=== PATIENT | male | born 1965 | race Caucasian/White ===

== ENCOUNTER 2018-03-16 09:25 | Inpatient (IN) ==
[~2018-03-16 09:25] MED LIST: CHLORHEXIDINE 0.12% ORAL RINSE 60 ML BOTTLE SWISH/SPIT SCH; DEXTROSE 50% 25 GM/50 ML VIAL IV PRN; GLUCAGON 1 MG VIAL IM PRN; SODIUM CHLORIDE 0.9% 1,000 ML IV PRN; ZALEPLON 5 MG CAPSULE PO PRN
[2018-03-16 10:14] LABS: Basophils # 0.1 10*3/uL (0.0-0.2); Basophils % 0.9 % (0.0-0.8); Eosinophils # 0.4 10*3/uL (0.0-0.87); Hematocrit 42.4 VOL% (42.0-52.0); Immature Granulocytes % 3.7 %; Immature Granulocytes Absolute 0.43 #; Lymphocytes # 2.2 10*3/uL (1.4-4.0); Lymphocytes % 18.7 % (21.2-54.2); Mean Corpuscular Hemoglobin 30 PG (27-34); Mean Corpuscular Volume 90.6 FL (87-102); Mean Platelet Volume 11.2 FL (9.6-12.0); Monocytes # 0.7 10*3/uL (0.11-0.8); Monocytes % 5.8 % (1.7-12.7); Neutrophils % 67.9 % (38.7-73.9); Platelet Count 220 T/CUMM (130-400); Red Blood Count 4.68 MC/CUMM (3.8-5.5); Red Cell Distribution Width 13.5 % (9.3-17.3); White Blood Count 11.7 T/CUMM (4-12)
[2018-03-16 10:43] LABS: Albumin 3.4 G/DL (3.4-5.0); Bilirubin,Total 0.5 MG/DL (0.2-1.0); Osmolality,Calculated 277.5 MOS/KG (273-304); Potassium 3.8 MMOL/L (3.5-5.1)
[2018-03-16 12:27] LABS: ABG Base Excess -0.4 MMOL/L (-2.5-2.5); ABG HCO3 24.1 MMOL/L (20-26); ABG Oxygen Saturation 96.6 % (95-100); ABG PCO2 42.4 MM HG (35-48); ABG PH 7.377 (7.35-7.45); ABG PO2 91.7 MM HG (80-95); ABG TCO2 21.5 MMOL/L (23-27)
[2018-03-16] MEDS: CLORAZEPATE 7.5 MG TABLET PO PRN ×2 (12:33→20:25)
[2018-03-16] MEDS: SODIUM CHLORIDE 0.9% 1,000 ML IV SCH ×5 (18:50→18:56)
[2018-03-16] MEDS: METOPROLOL TARTRATE 25 MG TABLET PO SCH ×4 (18:50→20:48)
[2018-03-16] MEDS: CHLORHEXIDINE 0.12% ORAL RINSE 60 ML BOTTLE SWISH/SPIT SCH ×4 (18:51→20:48)
[2018-03-16] MEDS: ASPIRIN CHEW 81 MG TABLET PO SCH (18:55)
[2018-03-16] MEDS: CHLORHEXIDINE 4% SOLN 118 ML BOTTLE TOP SCH ×2 (18:55→20:25)
[2018-03-16] MEDS: ATORVASTATIN 20 MG TABLET PO SCH (18:55)
[2018-03-17] MEDS ORDERED: PAPAVERINE 60 MG/2 ML VIAL ONE (05:21)
[2018-03-17] MEDS ORDERED: VANCOMYCIN 1,000 MG VIAL ONE (05:21)
[2018-03-17] MEDS ORDERED: CEFUROXIME INJ 1,500 MG in SYRINGE 1 EACH IV ONE (06:00)
[2018-03-17] MEDS ORDERED: EPINEPHrine 1 MG/10 ML SYRINGE ONE (07:26)
[2018-03-17] MEDS ORDERED: CALCIUM CHLORIDE 1,000 MG/10 ML SYRINGE IV ONE (07:26)
[2018-03-17] MEDS ORDERED: ALBUMIN 5% 12.5 GM/250 ML VIAL IV ONE (07:26)
[2018-03-17] MEDS ORDERED: PHENYLEPHRINE DRIP 40 MG/250 ML PREMIX IV ONE (07:26)
[2018-03-17] MEDS ORDERED: POTASSIUM CHLORIDE RIDER 100 ML IV ONE (07:27)
[2018-03-17] MEDS ORDERED: ATROPINE 1 MG/10 ML SYRINGE ONE (07:27)
[2018-03-17 07:39] LABS: ABG Base Excess 2.1 MMOL/L (-2.5-2.5); ABG HCO3 26.4 MMOL/L (20-26); ABG Oxygen Saturation 99.2 % (95-100); ABG PH 7.437 (7.35-7.45); ABG TCO2 27.6 MMOL/L (23-27); Glucose Heart Surgery 105 MG/DL (74-106); Hemoglobin Heart Surgery 13.9 G/DL (14.0-18.0); PH Patient Temp Arterial 7.437; Patient Temperature 37 CELCIUS; Sodium Heart/CVR 138 MMOL/L (135-145)
[2018-03-17 09:07] LABS: Hemoglobin Heart Surgery 9.8 G/DL (14.0-18.0); PCO2 Patient Temp Venous 36.3 MM HG; PH Patient Temp Venous 7.459; PO2 Patient Temp Venous 39.8 MM HG; Potassium Heart/CVR 5.8 MMOL/L (3.5-5.1); VBG Base Excess 2.1 MEQ/L (0-4); VBG HCO3 26.1 MEQ/L (24-28); VBG Oxygen Saturation 84.3 %; VBG PCO2 41.9 MMHG (41-51); VBG PH 7.415; VBG PO2 48.9 MMHG (17-40)
[2018-03-17 09:08] LABS: Hematocrit Heart Surgery 30.3 PERCENT (42-52)
[2018-03-17] MEDS ORDERED: VECURONIUM 10 MG VIAL IV ONE (09:18)
[2018-03-17] MEDS ORDERED: SUFentanil 250 MCG/5 ML AMP ONE (09:18)
[2018-03-17] MEDS ORDERED: MIDAZOLAM 10 MG/2 ML VIAL ONE ×2 (09:18→11:26)
[2018-03-17] MEDS ORDERED: HEPARIN/NACL 0.9% 2 UNITS/ML 500 ML IV ONE (09:18)
[2018-03-17] MEDS ORDERED: CALCIUM CHLORIDE 1,000 MG/10 ML VIAL IV ONE (09:18)
[2018-03-17] MEDS ORDERED: NITROGLYCERIN DRIP 50 MG/250 ML BOTTLE IV ONE (09:19)
[2018-03-17] MEDS ORDERED: PHENYLEPHRINE DRIP 20 MG/250 ML PREMIX IV ONE (09:19)
[2018-03-17] MEDS ORDERED: SODIUM CHLORIDE 0.9% 1,000 ML IV ONE (09:19)
[2018-03-17] MEDS ORDERED: LACTATED RINGERS 1,000 ML IV ONE (09:19)
[2018-03-17] MEDS ORDERED: ETOMIDATE 40 MG/20 ML VIAL IV ONE (09:19)
[2018-03-17] MEDS ORDERED: AMINOCAPROIC ACID 5,000 MG/20 ML VIAL IV ONE (09:19)
[2018-03-17 09:41] LABS: Hematocrit Heart Surgery 33.2 PERCENT (42-52); Hemoglobin Heart Surgery 10.8 G/DL (14.0-18.0); PCO2 Patient Temp Venous 32.7 MM HG; PH Patient Temp Venous 7.481; PO2 Patient Temp Venous 34.3 MM HG; Potassium Heart/CVR 5.9 MMOL/L (3.5-5.1); VBG Base Excess 1.4 MEQ/L (0-4); VBG HCO3 25.3 MEQ/L (24-28); VBG Oxygen Saturation 77.8 %; VBG PCO2 37.8 MMHG (41-51); VBG PH 7.436; VBG PO2 42.3 MMHG (17-40)
[2018-03-17 10:10] LABS: Hematocrit Heart Surgery 35.2 PERCENT (42-52); Hemoglobin Heart Surgery 11.4 G/DL (14.0-18.0); PCO2 Patient Temp Venous 37.4 MM HG; PH Patient Temp Venous 7.427; PO2 Patient Temp Venous 48.6 MM HG; Potassium Heart/CVR 5.4 MMOL/L (3.5-5.1); VBG Base Excess 0.6 MEQ/L (0-4); VBG HCO3 24.7 MEQ/L (24-28); VBG Oxygen Saturation 83.8 %; VBG PCO2 37.4 MMHG (41-51); VBG PH 7.427; VBG PO2 48.6 MMHG (17-40)
[2018-03-17] MEDS ORDERED: FAMOTIDINE 20 MG/2 ML VIAL IV ONE (10:23)
[2018-03-17] MEDS ORDERED: diphenhydrAMINE 50 MG/1 ML VIAL ONE (10:23)
[2018-03-17 10:34] LABS: ABG Base Excess -1.4 MMOL/L (-2.5-2.5); ABG HCO3 23.3 MMOL/L (20-26); ABG Oxygen Saturation 99.4 % (95-100); ABG PCO2 38.1 MM HG (35-48); ABG PH 7.393 (7.35-7.45); ABG TCO2 20.6 MMOL/L (23-27); Glucose Heart Surgery 171 MG/DL (74-106); Hematocrit Heart Surgery 36.9 PERCENT (42-52); Ionized Calcium Arterial 1.32 MMOL/L (1.21-1.46); PCO2 Patient Temp Arterial 38.1 MMHG; PH Patient Temp Arterial 7.393; Patient Temperature 37 CELCIUS; Potassium Heart/CVR 4.3 MMOL/L (3.5-5.1); Sodium Heart/CVR 136 MMOL/L (135-145)
[2018-03-17] MEDS ORDERED: SODIUM BICARBONATE 50 MEQ/50 ML SYRINGE IV ONE (10:41)
[2018-03-17] MEDS ORDERED: PROTAMINE SULFATE 250 MG/25 ML VIAL IV ONE (10:41)
[2018-03-17] MEDS ORDERED: DEXTROSE 5% KCL 20 MEQ 20 MEQ/1,000 ML BAG IV ONE (10:41)
[2018-03-17] MEDS ORDERED: ALBUMIN 25% 25 GM/100 ML VIAL IV ONE (10:41)
[2018-03-17] MEDS ORDERED: MAGNESIUM SULFATE 10 GM/20 ML VIAL IV ONE (10:41)
[2018-03-17] MEDS ORDERED: methylPREDNISolone SOD SUC 1,000 MG/8 ML VIAL ONE (10:42)
[2018-03-17] MEDS ORDERED: HEPARIN 10,000 UNIT/10 ML VIAL ONE (10:42)
[2018-03-17] MEDS ORDERED: MANNITOL 12.5 GM/50 ML VIAL IV ONE (10:42)
[2018-03-17] MEDS ORDERED: FUROSEMIDE 20 MG/2 ML VIAL ONE (10:42)
[2018-03-17] MEDS ORDERED: SEVOFLURANE 1 UNIT/15 MINUTE INH ONE (11:25)
[2018-03-17] MEDS ORDERED: PHENYLEPHRINE DRIP 40 MG/250 ML PREMIX IV PRN (11:43)
[2018-03-17] MEDS ORDERED: VECURONIUM 10 MG VIAL IV PRN ×2 (11:43)
[2018-03-17] MEDS ORDERED: MORPHINE 10 MG/1 ML VIAL IV PRN (11:43)
[2018-03-17] MEDS ORDERED: INSULIN REGULAR DRIP 100 ML IV SCH (11:43)
[2018-03-17] MEDS ORDERED: MIDAZOLAM 10 MG/2 ML VIAL IV PRN (11:43)
[2018-03-17] MEDS ORDERED: MAGNESIUM SULF RIDER 2 GM in PREMIX 1 EACH IV PRN (11:43)
[2018-03-17] MEDS ORDERED: DEXTROSE 50% 25 GM/50 ML VIAL IV PRN ×2 (11:43)
[2018-03-17] MEDS ORDERED: NITROPRUSSIDE 100 MG in DEXTROSE 5% 250 ML IV PRN (11:43)
[2018-03-17] MEDS ORDERED: POTASSIUM CHLORIDE RIDER 10 MEQ in PREMIX 1 EACH IV PRN (11:43)
[2018-03-17] MEDS ORDERED: INSULIN REGULAR 100 UNIT/ML IV ONE (11:43)
[2018-03-17] MEDS ORDERED: SODIUM CHLORIDE 0.45% 1,000 ML IV SCH ×2 (11:43)
[2018-03-17] MEDS ORDERED: INSULIN REGULAR 100 UNIT/ML IV PRN (11:43)
[2018-03-17] MEDS ORDERED: CALCIUM CHLORIDE 1,000 MG/10 ML SYRINGE IV PRN (11:43)
[2018-03-17] MEDS ORDERED: MAGNESIUM SULF RIDER 4 GM in PREMIX 1 EACH IV PRN (11:43)
[2018-03-17] MEDS ORDERED: LACTATED RINGERS 250 ML IV PRN (11:43)
[2018-03-17] MEDS ORDERED: ONDANSETRON 4 MG/2 ML VIAL IV PRN (11:43)
[2018-03-17] MEDS ORDERED: ACETAMINOPHEN 650 MG SUPP RECTAL PRN (11:43)
[2018-03-17 11:47] LABS: ABG Base Excess -0.7 MMOL/L (-2.5-2.5); ABG HCO3 23.9 MMOL/L (20-26); ABG Oxygen Saturation 98.6 % (95-100); ABG PCO2 48.4 MM HG (35-48); ABG PH 7.334 (7.35-7.45); Glucose Heart Surgery 127 MG/DL (74-106); Hematocrit Heart Surgery 36.5 PERCENT (42-52); Hemoglobin Heart Surgery 11.9 G/DL (14.0-18.0); Potassium Heart/CVR 3.9 MMOL/L (3.5-5.1)
[2018-03-17 11:49] LABS: Basophils # 0.1 10*3/uL (0.0-0.2); Basophils % 0.4 % (0.0-0.8); Eosinophils # 0.2 10*3/uL (0.0-0.87); Eosinophils % 0.9 % (0.00-10.9); Hematocrit 36.2 VOL% (42.0-52.0); Hemoglobin 12.3 GM/DL (14.0-18.0); Immature Granulocytes % 3.6 %; Immature Granulocytes Absolute 0.58 #; Lymphocytes # 1.3 10*3/uL (1.4-4.0); Lymphocytes % 7.9 % (21.2-54.2); Mean Corpuscular Hemoglobin 31 PG (27-34); Mean Corpuscular Volume 90.3 FL (87-102); Mean Platelet Volume 11.1 FL (9.6-12.0); Monocytes # 0.6 10*3/uL (0.11-0.8); Monocytes % 3.7 % (1.7-12.7); Neutrophils # 13.6 10*3/uL (1.4-7.4); Neutrophils % 83.5 % (38.7-73.9); Platelet Count 213 T/CUMM (130-400); Red Blood Count 4.01 MC/CUMM (3.8-5.5); Red Cell Distribution Width 13.3 % (9.3-17.3); White Blood Count 16.3 T/CUMM (4-12)
[2018-03-17] MEDS: POTASSIUM CHLORIDE RIDER 20 MEQ in PREMIX 1 EACH IV PRN ×2 (12:00→18:37)
[2018-03-17 12:09] LABS: PT Patient Result 10.4 SECS; Partial Thromboplastin Time 25.5 SECS (0-40)
[2018-03-17 12:12] LABS: Albumin 3.5 G/DL (3.4-5.0); Bilirubin,Total 1.4 MG/DL (0.2-1.0); Calcium 9.3 MG/DL (8.5-10.1); Osmolality,Calculated 281.3 MOS/KG (273-304); Total Protein 6.4 G/DL (6.4-8.3)
[2018-03-17 12:22] LABS: CKMB % 9.7 %
[2018-03-17 12:25] LABS: Troponin I 5.59 NG/ML (0.00-0.045)
[2018-03-17] MEDS: KETOROLAC 30 MG/1 ML VIAL IV SCH ×2 (12:31→18:43)
[2018-03-17] MEDS: ALBUMIN 5% 12.5 GM in PREMIX 1 EACH IV PRN ×4 (12:31→18:30)
[2018-03-17 13:06] LABS: Band Neutrophils 1 % (0-10); Eosinophils 2 % (0-10); Lymphocytes 12 % (20-55); Segmented Neutrophils 79 % (50-85); Total Cells Counted 100
[2018-03-17 13:07] LABS: Anisocytosis 1+
[2018-03-17 13:08] LABS: Ovalocytes Slight; Tear Drop Cells Slight
[2018-03-17 13:10] LABS: Platelet Estimate Normal
[2018-03-17 13:11] LABS: Polychromasia Slight
[2018-03-17 13:12] LABS: Stomatocytes Slight
[2018-03-17 13:13] LABS: Macrocytosis Slight
[2018-03-17 13:15] LABS: ABG HCO3 24.5 MMOL/L (20-26); ABG PCO2 48.8 MM HG (35-48); ABG TCO2 23.7 MMOL/L (23-27); Glucose Heart Surgery 122 MG/DL (74-106); Hematocrit Heart Surgery 35.5 PERCENT (42-52); Hemoglobin Heart Surgery 11.5 G/DL (14.0-18.0); Potassium Heart/CVR 4.2 MMOL/L (3.5-5.1)
[2018-03-17 14:25] LABS: ABG Base Excess 1.3 MMOL/L (-2.5-2.5); ABG HCO3 29.1 MMOL/L (20-26); ABG Oxygen Saturation 94.8 % (95-100); ABG PCO2 62.4 MM HG (35-48); ABG PH 7.287 (7.35-7.45); ABG PO2 92.5 MM HG (80-95); Glucose Heart Surgery 127 MG/DL (74-106); Hemoglobin Heart Surgery 11.7 G/DL (14.0-18.0); Potassium Heart/CVR 4.5 MMOL/L (3.5-5.1)
[2018-03-17] MEDS ORDERED: FUROSEMIDE 40 MG/4 ML VIAL IV ONE (14:30)
[2018-03-17] MEDS ORDERED: FUROSEMIDE 40 MG/4 ML VIAL ONE (14:34)
[2018-03-17] MEDS: ALBUTEROL/IPRATROPIUM 3 ML NEB RESP TX SCH ×3 (14:55→22:48)
[2018-03-17 15:25] LABS: ABG HCO3 23.6 MMOL/L (20-26); ABG PCO2 53.1 MM HG (35-48); ABG PH 7.302 (7.35-7.45); ABG TCO2 23.6 MMOL/L (23-27); Glucose Heart Surgery 159 MG/DL (74-106); Hematocrit Heart Surgery 36.2 PERCENT (42-52); Hemoglobin Heart Surgery 11.8 G/DL (14.0-18.0); Potassium Heart/CVR 4.3 MMOL/L (3.5-5.1)
[2018-03-17 16:29] LABS: ABG Base Excess 0.3 MMOL/L (-2.5-2.5); ABG HCO3 25.7 MMOL/L (20-26); ABG Oxygen Saturation 97.7 % (95-100); ABG PCO2 44.7 MM HG (35-48); ABG PH 7.378 (7.35-7.45); ABG PO2 120.2 MM HG (80-95); ABG TCO2 27.1 MMOL/L (23-27); Glucose Heart Surgery 168 MG/DL (74-106); Hemoglobin Heart Surgery 12.3 G/DL (14.0-18.0); Potassium Heart/CVR 4.3 MMOL/L (3.5-5.1)
[2018-03-17] MEDS: INSULIN REGULAR 100 UNIT/ML SUBCUT SCH ×2 (17:08→20:27)
[2018-03-17 18:04] LABS: ABG Base Excess -4.6 MMOL/L (-2.5-2.5); ABG HCO3 20.6 MMOL/L (20-26); ABG Oxygen Saturation 97.6 % (95-100); ABG PCO2 42.6 MM HG (35-48); ABG PH 7.312 (7.35-7.45); ABG TCO2 19.3 MMOL/L (23-27); Glucose Heart Surgery 193 MG/DL (74-106); Hematocrit Heart Surgery 36.9 PERCENT (42-52)
[2018-03-17] MEDS: MIDAZOLAM 2 MG/2 ML VIAL IV PRN (19:35)
[2018-03-17 20:02] LABS: ABG Base Excess -6.9 MMOL/L (-2.5-2.5); ABG HCO3 18.8 MMOL/L (20-26); ABG Oxygen Saturation 96.8 % (95-100); ABG PCO2 39.6 MM HG (35-48); ABG PH 7.293 (7.35-7.45); ABG TCO2 17.4 MMOL/L (23-27); Glucose Heart Surgery 196 MG/DL (74-106); Hematocrit Heart Surgery 34.4 PERCENT (42-52); Hemoglobin Heart Surgery 11.2 G/DL (14.0-18.0); Potassium Heart/CVR 4.4 MMOL/L (3.5-5.1)
[2018-03-17] MEDS: CHLORHEXIDINE 0.12% ORAL RINSE 60 ML BOTTLE SWISH/SPIT SCH (20:25)
[2018-03-17] MEDS: CEFUROXIME INJ 1,500 MG in SYRINGE 1 EACH IV SCH (20:26)
[2018-03-17 20:35] LABS: CKMB % 6.5 %
[2018-03-17 20:44] LABS: Troponin I 7.8 NG/ML (0.00-0.045)
[2018-03-18] MEDS: KETOROLAC 30 MG/1 ML VIAL IV SCH ×2 (00:23→06:20)
[2018-03-18 00:42] LABS: ABG HCO3 20.2 MMOL/L (20-26); ABG Oxygen Saturation 93.8 % (95-100); ABG PCO2 36.8 MM HG (35-48); ABG PH 7.346 (7.35-7.45); ABG PO2 73.2 MM HG (80-95); ABG TCO2 18.3 MMOL/L (23-27); Glucose Heart Surgery 181 MG/DL (74-106); Hematocrit Heart Surgery 33.1 PERCENT (42-52); Hemoglobin Heart Surgery 10.7 G/DL (14.0-18.0); Potassium Heart/CVR 3.8 MMOL/L (3.5-5.1)
[2018-03-18] MEDS: POTASSIUM CHLORIDE RIDER 20 MEQ in PREMIX 1 EACH IV PRN ×2 (00:55→04:51)
[2018-03-18] MEDS: INSULIN REGULAR 100 UNIT/ML SUBCUT SCH ×4 (00:55→12:09)
[2018-03-18] MEDS: MORPHINE 4 MG/1 ML VIAL IV PRN ×3 (01:18→19:39)
[2018-03-18] MEDS ORDERED: FUROSEMIDE 40 MG/4 ML VIAL IV ONE (01:57)
[2018-03-18] MEDS: ALBUTEROL/IPRATROPIUM 3 ML NEB RESP TX SCH ×2 (02:44→08:14)
[2018-03-18 04:02] LABS: ABG Base Excess -2.7 MMOL/L (-2.5-2.5); ABG HCO3 22.1 MMOL/L (20-26); ABG Oxygen Saturation 94.3 % (95-100); ABG PCO2 36.5 MM HG (35-48); ABG PH 7.384 (7.35-7.45); ABG PO2 72.1 MM HG (80-95); ABG TCO2 19.7 MMOL/L (23-27); Glucose Heart Surgery 177 MG/DL (74-106); Hemoglobin Heart Surgery 10.7 G/DL (14.0-18.0)
[2018-03-18 04:04] LABS: Basophils % 0.1 % (0.0-0.8); Hematocrit 31.4 VOL% (42.0-52.0); Hemoglobin 10.4 GM/DL (14.0-18.0); Immature Granulocytes % 1.5 %; Immature Granulocytes Absolute 0.29 #; Lymphocytes # 0.6 10*3/uL (1.4-4.0); Lymphocytes % 2.9 % (21.2-54.2); Mean Corpuscular HGB Conc 33.1 GM/DL (32-36); Mean Corpuscular Hemoglobin 31 PG (27-34); Mean Corpuscular Volume 92.6 FL (87-102); Mean Platelet Volume 11.1 FL (9.6-12.0); Monocytes # 1.2 10*3/uL (0.11-0.8); Monocytes % 6.1 % (1.7-12.7); Neutrophils # 17.7 10*3/uL (1.4-7.4); Neutrophils % 89.4 % (38.7-73.9); Platelet Count 222 T/CUMM (130-400); Red Blood Count 3.39 MC/CUMM (3.8-5.5); Red Cell Distribution Width 13.7 % (9.3-17.3); White Blood Count 19.8 T/CUMM (4-12)
[2018-03-18 04:42] LABS: Lymphocytes 2 % (20-55); Platelet Estimate Normal; Segmented Neutrophils 95 % (50-85); Total Cells Counted 100; Troponin I 8.11 NG/ML (0.00-0.045)
[2018-03-18 04:43] LABS: Polychromasia Few
[2018-03-18 04:59] LABS: Albumin 3.8 G/DL (3.4-5.0); Bilirubin,Direct 0.16 MG/DL (0.0-0.20); Bilirubin,Total 0.6 MG/DL (0.2-1.0); Calcium 8.8 MG/DL (8.5-10.1); Osmolality,Calculated 285.4 MOS/KG (273-304); Potassium 3.9 MMOL/L (3.5-5.1); Total Protein 6.5 G/DL (6.4-8.3)
[2018-03-18 06:55] LABS: CKMB % 4.6 %
[2018-03-18] MEDS: MIDAZOLAM 2 MG/2 ML VIAL IV PRN (08:30)
[2018-03-18] MEDS ORDERED: MAGNESIUM SULF RIDER 4 GM in PREMIX 1 EACH IV PRN (10:01)
[2018-03-18] MEDS ORDERED: ONDANSETRON 4 MG/2 ML VIAL IV PRN (10:01)
[2018-03-18] MEDS ORDERED: MAGNESIUM SULF RIDER 2 GM in PREMIX 1 EACH IV PRN (10:01)
[2018-03-18] MEDS ORDERED: POTASSIUM CHLORIDE 20 MEQ TABLET PO PRN (10:01)
[2018-03-18] MEDS ORDERED: DEXTROSE 50% 25 GM/50 ML VIAL IV PRN ×2 (10:01)
[2018-03-18] MEDS ORDERED: SODIUM CHLOR 0.45% KCL 20 MEQ 20 MEQ/1,000 ML BAG IV SCH (10:01)
[2018-03-18] MEDS ORDERED: MAGNESIUM HYDROXIDE SUSP 30 ML UDCUP PO PRN (10:01)
[2018-03-18] MEDS ORDERED: GLUCAGON 1 MG VIAL IM PRN ×2 (10:01)
[2018-03-18] MEDS ORDERED: ZALEPLON 5 MG CAPSULE PO PRN (10:01)
[2018-03-18] MEDS ORDERED: ALUMINUM/MAGNES/SIMETH MAX STR 30 ML UDCUP PO PRN (10:01)
[2018-03-18] MEDS ORDERED: CEFUROXIME INJ 1,500 MG in SYRINGE 1 EACH IV SCH (10:30)
[2018-03-18] MEDS: ASPIRIN EC 81 MG TABLET PO SCH (10:37)
[2018-03-18] MEDS: PANTOPRAZOLE 40 MG TABLET PO SCH (10:37)
[2018-03-18] MEDS: KETOROLAC 15 MG/1 ML VIAL IV SCH ×3 (10:37→21:41)
[2018-03-18] MEDS: METOPROLOL TARTRATE 25 MG TABLET PO SCH ×3 (10:37→21:41)
[2018-03-18] MEDS: oxyCODONE/ACETAMINOPHEN 5-325 MG TABLET PO PRN (10:38)
[2018-03-18] MEDS: FERROUS SULFATE 325 MG TABLET PO SCH ×2 (10:40→21:44)
[2018-03-18] MEDS: CHLORHEXIDINE 4% SOLN 118 ML BOTTLE TOP SCH (12:08)
[2018-03-18] MEDS: CEFUROXIME INJ 1,500 MG in SYRINGE 1 EACH IV SCH ×2 (12:09→19:42)
[2018-03-18] MEDS: CHLORHEXIDINE 0.12% ORAL RINSE 60 ML BOTTLE SWISH/SPIT SCH ×3 (12:09→21:43)
[2018-03-18] MEDS: ASPIRIN CHEW 81 MG TABLET PO SCH (15:12)
[2018-03-18] MEDS: ATORVASTATIN 20 MG TABLET PO SCH ×2 (15:12→21:41)
[2018-03-18] MEDS: SODIUM CHLORIDE 0.9% 1,000 ML IV SCH ×2 (15:13)
[2018-03-19] MEDS: ACETAMINOPHEN 325 MG TABLET PO PRN ×2 (04:23→11:20)
[2018-03-19] MEDS: KETOROLAC 15 MG/1 ML VIAL IV SCH ×4 (04:24→21:14)
[2018-03-19] MEDS ORDERED: FUROSEMIDE 40 MG/4 ML VIAL ONE (04:32)
[2018-03-19 04:47] LABS: Basophils % 0.1 % (0.0-0.8); Eosinophils % 0.1 % (0.00-10.9); Hematocrit 31.6 VOL% (42.0-52.0); Hemoglobin 10.2 GM/DL (14.0-18.0); Immature Granulocytes % 1.7 %; Immature Granulocytes Absolute 0.35 #; Lymphocytes # 2.1 10*3/uL (1.4-4.0); Lymphocytes % 10.2 % (21.2-54.2); Mean Corpuscular HGB Conc 32.3 GM/DL (32-36); Mean Corpuscular Hemoglobin 30 PG (27-34); Mean Corpuscular Volume 94.3 FL (87-102); Mean Platelet Volume 10.8 FL (9.6-12.0); Monocytes # 1.7 10*3/uL (0.11-0.8); Monocytes % 7.9 % (1.7-12.7); Neutrophils # 16.7 10*3/uL (1.4-7.4); Platelet Count 199 T/CUMM (130-400); Red Blood Count 3.35 MC/CUMM (3.8-5.5); Red Cell Distribution Width 14.1 % (9.3-17.3); White Blood Count 20.9 T/CUMM (4-12)
[2018-03-19 05:07] LABS: Lymphocytes 16 % (20-55); Platelet Estimate Normal; Segmented Neutrophils 77 % (50-85); Total Cells Counted 100
[2018-03-19 05:29] LABS: Albumin 3.4 G/DL (3.4-5.0); Bilirubin,Direct 0.3 MG/DL (0.0-0.20); Bilirubin,Indirect 0.8 MG/DL (0.0-1.0); Bilirubin,Total 1.1 MG/DL (0.2-1.0); CKMB % 1.5 %; Calcium 8.7 MG/DL (8.5-10.1); Osmolality,Calculated 280.7 MOS/KG (273-304); Potassium 4.9 MMOL/L (3.5-5.1); Total Protein 6.2 G/DL (6.4-8.3)
[2018-03-19 05:31] LABS: Troponin I 4.53 NG/ML (0.00-0.045)
[2018-03-19] MEDS ORDERED: FUROSEMIDE 40 MG/4 ML VIAL IV ONE ×2 (06:00→14:00)
[2018-03-19] MEDS: ALBUTEROL/IPRATROPIUM 3 ML NEB RESP TX PRN ×4 (07:00→20:07)
[2018-03-19] MEDS: CEFUROXIME INJ 1,500 MG in SYRINGE 1 EACH IV SCH (08:47)
[2018-03-19] MEDS: FERROUS SULFATE 325 MG TABLET PO SCH ×2 (08:49→21:14)
[2018-03-19] MEDS: METOPROLOL TARTRATE 25 MG TABLET PO SCH ×2 (08:49→21:14)
[2018-03-19] MEDS: PANTOPRAZOLE 40 MG TABLET PO SCH (08:49)
[2018-03-19] MEDS: DOCUSATE SODIUM 100 MG CAPSULE PO SCH (08:49)
[2018-03-19] MEDS: ASPIRIN EC 81 MG TABLET PO SCH (08:49)
[2018-03-19] MEDS: CHLORHEXIDINE 0.12% ORAL RINSE 60 ML BOTTLE SWISH/SPIT SCH ×2 (09:05→21:14)
[2018-03-19] MEDS: oxyCODONE/ACETAMINOPHEN 5-325 MG TABLET PO PRN (12:10)
[2018-03-19] MEDS ORDERED: CLORAZEPATE 7.5 MG TABLET PO PRN (12:10)
[2018-03-19] MEDS ORDERED: LISINOPRIL 20 MG TABLET PO SCH (20:30)
[2018-03-19] MEDS: ATORVASTATIN 20 MG TABLET PO SCH (21:14)
[2018-03-20] MEDS: ALBUTEROL/IPRATROPIUM 3 ML NEB RESP TX PRN ×6 (00:04→19:26)
[2018-03-20] MEDS: MORPHINE 4 MG/1 ML VIAL IV PRN (00:05)
[2018-03-20] MEDS: KETOROLAC 15 MG/1 ML VIAL IV SCH ×4 (03:45→21:27)
[2018-03-20 04:09] LABS: Basophils % 0.3 % (0.0-0.8); Eosinophils # 0.2 10*3/uL (0.0-0.87); Eosinophils % 1.3 % (0.00-10.9); Hematocrit 31.2 VOL% (42.0-52.0); Hemoglobin 10.2 GM/DL (14.0-18.0); Immature Granulocytes % 2.5 %; Immature Granulocytes Absolute 0.37 #; Lymphocytes # 2.1 10*3/uL (1.4-4.0); Lymphocytes % 13.9 % (21.2-54.2); Mean Corpuscular HGB Conc 32.7 GM/DL (32-36); Mean Corpuscular Hemoglobin 30 PG (27-34); Mean Platelet Volume 11.2 FL (9.6-12.0); Monocytes # 1.1 10*3/uL (0.11-0.8); Monocytes % 7.3 % (1.7-12.7); Neutrophils # 11.1 10*3/uL (1.4-7.4); Neutrophils % 74.7 % (38.7-73.9); Platelet Count 210 T/CUMM (130-400); Red Blood Count 3.39 MC/CUMM (3.8-5.5); Red Cell Distribution Width 13.9 % (9.3-17.3); White Blood Count 14.9 T/CUMM (4-12)
[2018-03-20 04:21] LABS: Alanine Aminotransferase 88 U/L (16-61); Albumin 3.2 G/DL (3.4-5.0); Alkaline Phosphatase 96 U/L (45-117); Aspartate Amino Transferase 47 U/L (0-37); Bilirubin,Indirect 0.7 MG/DL (0.0-1.0); Blood Urea Nitrogen 22 MG/DL (7-18); Glucose 103 MG/DL (74-106); Osmolality,Calculated 275.8 MOS/KG (273-304); Potassium 4.1 MMOL/L (3.5-5.1); Sodium 137 MMOL/L (136-145); Total Protein 6.5 G/DL (6.4-8.3)
[2018-03-20] MEDS: ASPIRIN EC 81 MG TABLET PO SCH (08:48)
[2018-03-20] MEDS: METOPROLOL TARTRATE 25 MG TABLET PO SCH ×2 (08:48→21:27)
[2018-03-20] MEDS: FERROUS SULFATE 325 MG TABLET PO SCH ×2 (08:48→21:27)
[2018-03-20] MEDS: DOCUSATE SODIUM 100 MG CAPSULE PO SCH (08:48)
[2018-03-20] MEDS: PANTOPRAZOLE 40 MG TABLET PO SCH (08:48)
[2018-03-20] MEDS: CHLORHEXIDINE 0.12% ORAL RINSE 60 ML BOTTLE SWISH/SPIT SCH ×2 (08:49→21:28)
[2018-03-20] MEDS: oxyCODONE/ACETAMINOPHEN 5-325 MG TABLET PO PRN (09:00)
[2018-03-20] MEDS: ATORVASTATIN 20 MG TABLET PO SCH (21:27)
[2018-03-21] MEDS: KETOROLAC 15 MG/1 ML VIAL IV SCH (03:46)
[2018-03-21] MEDS: ALBUTEROL/IPRATROPIUM 3 ML NEB RESP TX PRN ×2 (07:10→10:25)
[2018-03-21 07:44] VITALS: BP 128/70
[2018-03-21] MEDS: ASPIRIN EC 81 MG TABLET PO SCH (08:53)
[2018-03-21] MEDS: PANTOPRAZOLE 40 MG TABLET PO SCH (08:53)
[2018-03-21] MEDS: METOPROLOL TARTRATE 25 MG TABLET PO SCH (08:53)
[2018-03-21] MEDS: FERROUS SULFATE 325 MG TABLET PO SCH (08:53)
[2018-03-21] MEDS: DOCUSATE SODIUM 100 MG CAPSULE PO SCH (08:53)
[2018-03-21] MEDS: CHLORHEXIDINE 0.12% ORAL RINSE 60 ML BOTTLE SWISH/SPIT SCH (08:54)
== END 2018-03-21 11:20 | disposition home health service (06) | DRG 236 ==
LOC: N.4E 09:25 → N.CVR 03-17 07:20 → N.ICU 03-18 10:20 → N.TELES 03-18 12:04